=== PATIENT | male | born 1955 | race Caucasian/White ===

== ENCOUNTER 2017-01-08 16:27 | Emergency (ER) | payer OTHER ==
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
--- NOTE | 2017-01-08 18:17 | Diag Imaging Result Document ---
PROCEDURE NAME: KNEE 3 VIEWS LEFT - 01/08/2017 LEFT KNEE, 3 VIEWS: There is medial joint space narrowing. There are small bone spurs to the femoral condyles and tibial plateau. Prominent bone spurring to the patella with patellofemoral joint space narrowing. No fracture. No dislocation. IMPRESSION: No acute bony injury.
--- NOTE | 2017-01-08 18:18 | Diag Imaging Result Document ---
PROCEDURE NAME: FACIAL BONES - 01/08/2017 FACIAL BONES, 3 VIEWS: No sinus opacification. No air fluid levels. No fracture or dislocation is seen. IMPRESSION: I do not identify an acute fracture. However, a CT of the face is recommended if clinical suspicion persists.
--- NOTE | 2017-01-08 18:26 | Diag Imaging Result Document ---
PROCEDURE NAME: SHOULDER-LEFT - 01/08/2017 LEFT SHOULDER THREE VIEWS INCLUDING AN AXILLARY Y VIEW: FINDINGS: No separation at the acromioclavicular joint. No fracture. The humeral head appears somewhat inferiorly placed from its normal location with the acromion. This may not represent an acute dislocation. There are arthritic changes about the humeral head and glenoid. IMPRESSION: No fracture.
[2017-01-08 18:47] VITALS: BP 136/84
== END 2017-01-08 19:32 | disposition home or self-care (01) ==
LOC: ED 16:27
DX: S00.81XA Abrasion of other part of head, initial encounter (principal); M25.512 Pain in left shoulder; M25.562 Pain in left knee; R51 Headache; L53.9 Erythematous condition, unspecified; I10 Essential (primary) hypertension; M19.90 Unspecified osteoarthritis, unspecified site; Z98.84 Bariatric surgery status; Z96.651 Presence of right artificial knee joint; W19.XXXA Unspecified fall, initial encounter; Y04.0XXA Assault by unarmed brawl or fight, initial encounter
CPT/HCPCS: 70150